=== PATIENT | female | born 1995 ===

== ENCOUNTER 2017-10-19 14:14 | Emergency (ER) | payer OTHER ==
[2017-10-19 14:33] VITALS: BMI 33.3
[2017-10-19 14:34] VITALS: BP 112/73; PULSE 88; RESP 16; TEMP 99.4; O2SAT 99
--- NOTE | 2017-10-19 14:44 | ED PDOC ---
HPI: CCC, URI, Sore Throat Time Seen by Provider: 10/19/17 15:00 Chief Complaint (Nursing): Cough, Cold, Congestion Chief Complaint (Provider): Cough and fever History Per: Patient History/Exam Limitations: no limitations Onset/Duration Of Symptoms: Other (2 weeks) Additional Complaint(s): Patient is a 22 y/o female with no significant past medical history presenting to the emergency department for a cough, tactile fever, and chest pain when coughing ongoing for two weeks. Reports that the fever occurs at night. Denies shortness of breath, vomiting, diarrhea, or other complaints. PCP: none provided. Past Medical History Reviewed: Historical Data, Nursing Documentation, Vital Signs Vital Signs: Last Vital Signs Temp 99.4 F 10/19/17 14:33 Pulse 88 10/19/17 14:33 Resp 16 10/19/17 14:33 BP 112/73 10/19/17 14:33 Pulse Ox 99 10/19/17 15:20 - Medical History PMH: No Chronic Diseases - Family History Family History: States: Unknown Family Hx - Home Medications Home Medications: Ambulatory Orders Medication Instructions Recorded Albuterol Sulfate [Proair Hfa] 0.09 mg IH Q6H PRN #2 inh 05/17/16 Azithromycin [Zithromax Z-Jayden] 250 mg PO DAILY 5 Days tab 05/17/16 Benzonatate [Tessalon Perles] 100 mg PO BID PRN 5 Days sgl 05/17/16 Prednisone 20 mg PO BID 5 Days tablet 05/17/16 Albuterol HFA [Ventolin HFA 90 2 puff IH [id number] #1 puff 10/19/17 mcg/actuation (8 g)] Azithromycin [Z-Jayden] 250 mg PO DAILY #6 tab 10/19/17 Guaifenesin 400 mg PO QID #20 tablet 10/19/17 - Allergies Allergies/Adverse Reactions: Allergies Allergy/AdvReac Type Severity Reaction Status Date / Time No Known Allergies Allergy Verified 05/17/16 13:18 Review of Systems ROS Statement: Except As Marked, All Systems Reviewed And Found Negative Constitutional: Positive for: Fever (tactile) Respiratory: Positive for: Cough. Negative for: Shortness of Breath Gastrointestinal: Negative for: Vomiting, Diarrhea Physical Exam - Reviewed Nursing Documentation Reviewed: Yes Vital Signs Reviewed: Yes - Physical Exam Appears: Positive for: Non-toxic, No Acute Distress Head Exam: Positive for: ATRAUMATIC, NORMAL INSPECTION, NORMOCEPHALIC Skin: Positive for: Normal Color, Warm, Dry. Negative for: Pallor, Rash, Cyanosis Eye Exam: Positive for: Normal appearance. Negative for: Nystagmus, Conjunctival injection, Scleral icterus ENT: Positive for: Normal ENT Inspection, Pharynx Is (normal), Other (moist mucuous membranes). Negative for: Pharyngeal Erythema, Tonsillar Exudate, Tonsillar Swelling Neck: Positive for: Normal (with no meningismus) Cardiovascular/Chest: Positive for: Regular Rate, Rhythm. Negative for: Murmur Respiratory: Positive for: Normal Breath Sounds. Negative for: Accessory Muscle Use, Respiratory Distress Gastrointestinal/Abdominal: Positive for: Normal Exam, Soft. Negative for: Tenderness Extremity: Positive for: Normal ROM. Negative for: Pedal Edema Lymphatic: Positive for: Adenopathy (nontender cervical lymphadenoapthy) Neurologic/Psych: Positive for: Alert, Oriented (x3) - ECG O2 Sat by Pulse Oximetry: 99 (RA) Pulse Ox Interpretation: Normal Medical Decision Making Medical Decision Making: Time: 15:12 Initial impression: Cough and fever Initial plan: Albuterol 3 mL IH Robitussin 400 mg PO Nebulizer treatment Peak flow assessment pre and post treatment Reevaluation 15:19 On reevaluation, patient is sitting in a chair in no acute distress. Patient is speaking in full sentence. Lungs are clear to auscultation. Patient is stable for discharge. Advised to follow up with primary care physician in 1-2 days without fail. Advised to take medication as prescribed. Return to the emergency room at any time for any new or worsening symptoms. Patient states she fully agrees with and understands discharge instructions. States that she agrees with the plan and disposition. Verbalized and repeated discharge instructions and plan. I have given the patient opportunity to ask any additional questions. Clinical impression: Bronchitis ~ Scribe Attestation: Documented by Kenyatta Byers, acting as a scribe for JANE Aguilera. Provider Scribe Attestation: All medical record entries made by the Scribe were at my direction and personally dictated by me. I have reviewed the chart and agree that the record accurately reflects my personal performance of the history, physical exam, medical decision making, and the department course for this patient. I have also personally directed Disposition - Clinical Impression Clinical Impression: Bronchitis - Patient ED Disposition Is Patient to be Admitted: No Counseled Patient/Family Regarding: Diagnosis, Need For Followup, Rx Given - Disposition Referrals: [facility] [Outside] Disposition Time: 15:19 Condition: STABLE Additional Instructions: Thank you for letting us take care of you today. You were treated for acute bronchitis. The emergency medical care you received today was directed at your acute symptoms. If you were prescribed any medication, please fill it and take as directed. It may take several days for your symptoms to resolve. Return to the Emergency Department if your symptoms worsen, do not improve, or if you have any other problems. Please contact one of the physicians/clinics you have been referred to that are listed on the Patient Visit Information form that is included in your discharge packet. Bring any paperwork you were given at discharge with you along with any medications you are taking to your follow up visit. Our treatment cannot replace ongoing medical care by a primary care provider (PCP) outside of the emergency department. Thank you for allowing the [facility] team to be part of your care today. Prescriptions: Albuterol HFA [Ventolin HFA 90 mcg/actuation (8 g)] 2 puff IH [id number] #1 puff Azithromycin [Z-Jayden] 250 mg PO DAILY #6 tab Guaifenesin 400 mg PO QID #20 tablet Instructions: Acute Bronchitis (ED) Forms: [facility] (Nepali), [facility] ED School/Work Excuse Print Language: IRAQI - PA / REGISTERED PHYSICAL THERAPIST / Resident Statement MD/DO has reviewed & agrees with the documentation as recorded.
[2017-10-19] MEDS ORDERED: Albuterol-Ipratrop 3 mg / 0.5 (3 ml) UD IH STA (15:12)
[2017-10-19] MEDS ORDERED: Albuterol-Ipratrop 3 mg / 0.5 (3 ml) UD ONE (15:27)
[2017-10-19] MEDS ORDERED: guaiFENesin 100 mg/5 ml Syrup UD ONE (15:30)
[2017-10-19] MEDS ORDERED: guaiFENesin 200 mg/10 ml Syrup UD PO ONE (15:30)
== END 2017-10-19 18:37 | disposition home or self-care (01) ==
LOC: H.ER 14:14
DX: J40 Bronchitis, not specified as acute or chronic (principal)

== ENCOUNTER 2018-07-08 12:56 | Inpatient (IN) | payer MEDICAID ==
[2018-07-08] MEDS ORDERED: Phenaphthazine-PH Test Paper VI ONE (13:23)
[2018-07-08 13:34] VITALS: BMI 34.7
[2018-07-08] MEDS ORDERED: Betamethasone Soluspan 30 mg/5mL Inj Susp IM ONE (14:29)
[2018-07-08] MEDS ORDERED: Penicillin G Potassium 5 MU in Sodium Chloride 0.9% 50 ML IVPB ONE (14:30)
[2018-07-08] MEDS ORDERED: Penicillin G 5 Million Unit Vial IVPB ONE ×2 (15:00→19:07)
[2018-07-08] MEDS ORDERED: Lactated Ringer's 1,000 ML IV ONE (15:23)
[2018-07-08] MEDS ORDERED: Oxytocin 30 UNIT 30 UNITS/500 ML BAG IV ONE ×3 (15:23→19:31)
--- NOTE | 2018-07-08 15:59 | OBHP ---
Datetime: 07/08/2018 13:55 IP Adm Impression: , intrauterine ; Ruptured Membranes IP Admit Plan: Admit to unit; Initiate labor protocol Admit Comment, IP Provider: Voice:[id number] Pt is a 23yo 36.4wk due 08/01/18 based on 11wk U/S done on 01/11/18 here due to suspected RO M she states that at 12:30pm she felt a gush of fluid and now has leaking. Denies vaginal bleeding, c ontractions, states good movement. Denies headaches, blurry vision, chest pain, SOB, nausea, vo miting, diarrhea, constipation, or dysuria. PNC: Dr. Lauri Trivedi PNL: unremarkable, GBS unknown-done on 07/05, ABO:A+, TDAP- 05/04/18, Gest DM screen 106 OBHx: -2013 No complications Disaster Recovery Consultant: Denies STD's, Denies abnormal pap smear, Last sexually active 1 week ago PMHx: None Meds: PNV Allergies: NKDA Family Hx: None Social Hx: Denies smoking, alcohol, or drug use Surg hx: None Hosp: None PE: HEENT: NCAT, PERRLA CV: RRR, +S1,S2, no murmurs, rubs or gallops RESP: CTA, no wheezing, rales or rhonchi Abdomen: Soft, nontender, normal bowel sounds appreciated Disaster Recovery Consultant: Grossly ruptured clear fluids, 3cm dilated, + Nitrazine test Extremities: No edema noted A/P Pt is a 23yo 36.4wk here for spontaneous rupture of membranes PROM -Admit to floor -Initiate labor protocol -Betamethasone 12mg IM -PCN G 5MU/50ML once, then 2.5MU/50ML Q4H- GBS status unknown -Pain control -Monitor heart rate -Hydrate- Lactated Ringers @125ML/HR Case reveiwed and discussed with Dr. Jose Juan Baxter PGY-1 Attending Note: Patient was seen and examined with Resident and I agree with the above findings. Pelvic Type - PN: Adequate Extremities - PN: Normal Abdomen - PN: Normal Back - PN: Normal Breast - PN: Not Done Lungs - PN: Normal Heart - PN: Normal Thyroid - PN: Not Done Neurologic - PN: Normal HEENT - PN: Normal General - PN: Normal Presentation-Admit: Vertex FHR - Baseline A Provider: 150s Amniotic Fluid Color, Provider: Bloody Membranes, Provider: Ruptured Gestation - Est Wks by US: 36.4 Pool Provider: Positive Nitrazine Provider: Positive IP Hx Assessment: The History has been Reviewed and is Current EGA AdmitDate IP: 36.4 Vital Signs Provider: Reviewed; Within Normal Limits IP Chief Complaint: Suspected ruptured membranes; Maternal discomfort NICHD Variability Prov Fetus A: Moderate 6-25bpm NICHD Accel Fetus A IP Provider: 15X15 FHR Category Provider Fetus A: Category I NICHD Decel Fetus A IP Provider: None Dilatation, Provider: 3 Effacement, Provider: 70 Station, Provider: -3 Genitourinary Exam: Normal DTRs - PN: Normal
[2018-07-08 16:02] LABS: BASO % 0.3 % (0.0-2.0); EOS # 0.1 K/uL (0.0-0.7); EOS % 0.9 % (0.0-4.0); HEMOGLOBIN 12.3 g/dL (12.0-16.0); LYMPH # 2.2 K/uL (1.0-4.3); LYMPH % 16.8 % (20.0-40.0); MEAN CELL VOLUME 78.3 fl (81.0-99.0); MEAN CORPUSCULAR HEMOGLOBIN 26.1 pg (27.0-31.0); MEAN CORPUSCULAR HGB CONC 33.3 g/dL (33.0-37.0); MEAN PLATELET VOLUME 8.6 fl (7.2-11.7); MONO # 0.8 K/uL (0.0-0.8); MONO % 5.8 % (0.0-10.0); NEUT % 76.2 % (50.0-75.0); NRBC % 0.1 % (0.0-0.0); RBC 4.73 Mil/uL (3.80-5.20); RED CELL DISTRIBUTION WIDTH 14.9 % (11.5-14.5); WHITE BLOOD COUNT 13.1 K/uL (4.8-10.8)
[2018-07-08] MEDS: Lactated Ringer's 1,000 ML IV SCH ×2 (16:17→21:21)
[2018-07-08 18:52] VITALS: O2SAT 100
--- NOTE | 2018-07-08 19:46 | OBPN ---
Datetime: 07/08/2018 19:39 IP Progress Impression: Normal progression of labor; Reassuring heart rate; Premature rupture of membranes IP Procedures: Sterile Vag Exam IP Progress Plan: Continue present management; Anticipate Vaginal Delivery Contraction Comments Provider: Q 2-3 FHR - Baseline A Provider: 150 Gestation - Est Wks by US: 36.4 Presentation-Admit: Vertex IP Progress Note Comment: IUP at 36.4wks PROM in active labor S/P Bethamethasone X1 Requestin Epidural for anesthesia Plan: Continue current management May have epidural. NICHD Accel Fetus A IP Provider: 15X15 FHR Category Provider Fetus A: Category I NICHD Variability Prov Fetus A: Moderate 6-25bpm Dilatation, Provider: 6 Effacement, Provider: 90 Station, Provider: -3 NICHD Decel Fetus A IP Provider: Early Datetime: 07/08/2018 13:55 Pool Provider: Positive Nitrazine Provider: Positive Membranes, Provider: Ruptured Amniotic Fluid Color, Provider: Bloody Vital Signs Provider: Reviewed; Within Normal Limits
[2018-07-08] MEDS ORDERED: Fentanyl/Bupivacaine HCl 250 ML EPI ONE (20:28)
--- NOTE | 2018-07-08 21:55 | OBPN ---
Datetime: 07/08/2018 21:50 IP Informed Consent Obtain: Vaginal Delivery IP Progress Plan: Continue present management Contraction Comments Provider: q 2-4 mins FHR - Baseline A Provider: 150 IP Progress Note Comment: Patient evaluated, feeling comfortable s/p epidural. patient check by RN, unchanged cervical exam in 2 hours [id number] mod segundo, +accels, early decels TOCo = ctxns q 2-4 mins A/P 1. Patient has dystotic active labor, will start augmentation now with Pitocin 2. CEFM and TOCO 3. Continue antibiotics for GBS prophylaxis, pt has been given Betamethasone 4. re-evaluate as needed 5. Discussed current status with patient, all questions answered Vital Signs Provider: Reviewed; Within Normal Limits NICHD Accel Fetus A IP Provider: 15X15 FHR Category Provider Fetus A: Category I NICHD Variability Prov Fetus A: Moderate 6-25bpm Dilatation, Provider: 6 Effacement, Provider: 90 Station, Provider: -3 NICHD Decel Fetus A IP Provider: Early
[2018-07-08] MEDS ORDERED: Lidocaine 2% MPF (5 ml) Inj ONE (22:51)
[2018-07-09] MEDS ORDERED: Acetaminophen-Codeine 300/30 mg Tab PO PRN ×2 (00:25→03:13)
[2018-07-09] MEDS ORDERED: Oxycodone/Acetaminophen 5/325 mg Tab PO PRN ×2 (00:25→03:13)
[2018-07-09] MEDS ORDERED: Benzocaine/Menthol SPRAY TOP PRN ×2 (00:25→03:13)
--- NOTE | 2018-07-09 00:26 | OBDS ---
DELIVERY PERSONNEL Delivery Doctor: Shayla Desai MD Seamless Tube Roller: Ma. Pily Deutsch RN Anesthesiologist: Olena Leach MD MATERNAL INFORMATION Delivery Anesthesia: Epidural Medications in Delivery: [id number] Estimated Blood Loss (ml): 50 Placenta Cultured: Yes Maternal Complications: None Provider Comments: of live male infant over intact perineum OA, nuchal cord loose x 1, compound presentation, followed by shoulders and rest of atraumatically, mouth and nose suctioned, cor d clamped and cut, handed off to waiting artists' model, Cord blood x 2 obtained, placenta deliv ered spontaneously, uterus firm, first degree laceration repaired with 3-0 vicryl rapide, 50 EBL, pt tolerated procedure well LABOR SUMMARY EDC: 08/01/2018 00:00 No. Babies in Womb: 1 Attempted: No Labor Anesthesia: Epidural LABOR INFORMATION Reason for Induction: Not Applicable Onset of Labor: 07/08/2018 19:37 Complete Dilatation: 07/08/2018 23:13 Oxytocin: Augmentation Group B Beta Strep: Done, Result Unknown Antibiotics # of Doses: 2 Steroids Given: None Reason Steroids Not Administered: Not Applicable MEMBRANES Membranes Rupture Method: Spontaneous Rupture of Membranes: 07/08/2018 12:00 Length of Rupture (hrs): 11.53 Amniotic Fluid Color: Clear Amniotic Fluid Amount: Scant Amniotic Fluid Odor: None STAGES OF LABOR Stage 1 hrs: 3 Stage 1 min: 36 Stage 2 hrs: 0 Stage 2 min: 19 Stage 3 hrs: 0 Stage 3 min: 2 Total Time in Labor hrs: 3 Total Time in Labor min: 57 VAGINAL DELIVERY Episiotomy: None Laceration Extension: First Degree Laceration Type: Vaginal Laceration Repair: Yes Initial Vag Sponge Count: 5 Final Vag Sponge Count: 5 Initial Vag Sharps Count: 1 Final Vag Sharps Count: 1 Sponge Count Correct: Yes Sharps Count Correct: Yes BABY A INFORMATION Infant Delivery Date/Time: 07/08/2018 23:32 Method of Delivery: Vaginal Born in Route : No : N/A Forceps: N/A Vacuum Extraction: N/A Shoulder Dystocia : No SHOULDER DYSTOCIA BABY A Delivery Date/Time: 07/08/2018 23:32 PRESENTATION/POSITION BABY A Presentation: Compound PLACENTA INFORMATION BABY A Placenta Delivery Time : 07/08/2018 23:34 Placenta Method of Delivery: Spontaneous Placenta Status: Delivered SCORES BABY A Heart Rate 1 min: >100 bpm Resp Effort 1 min: Good Cry Reflex Irritability 1 min: Cough or Sneeze or Pulls Away Muscle Tone 1 min: Active Motion Color 1 min: Body [place], Extremities Blue Resuscitation Effort 1 min: Tactile Stimulation SCORE 1 MIN: 9 Heart Rate 5 min: >100 bpm Resp Effort 5 min: Good Cry Reflex Irritability 5 min: Cough or Sneeze or Pulls Away Muscle Tone 5 min: Active Motion Color 5 min: Body [place], Extremities Blue Resuscitation Effort 5 min: N/A SCORE 5 MIN: 9 INFORMATION BABY A Gestational Age at Delivery: 36.4 Gestational Status: Infant Outcome : Liveborn Condition : Stable Infant Sex: Male IDENTIFICATION/MEDS BABY A ID Band Number: [id number] ID Band Location: Left Leg; Left Arm WEIGHT/LENGTH BABY A Infant Birthweight (gms): 3240 Weight (lb): 7 Weight (oz): 2 CORD INFORMATION BABY A No. Cord Vessels: 3 Nuchal Cord : Around Neck x1, Loose Cord Blood Taken: Yes Suction: Mouth; Nose
--- NOTE | 2018-07-09 07:34 | OBPPN ---
Datetime: 07/09/2018 06:51 PP Pain Prov: Within normal limits PP Nausea Prov: Denies PP Flatus Prov: Yes PP BM Prov: No PP Breasts Prov: Not Done PP Heart Prov: Normal PP Lungs Prov: Normal PP Abdomen/Uterus Prov: Normal PP Lochia Prov: Normal PP Vulva/Perineum Prov: Not Done PP CVA Tenderness Prov: Not Done PP Extremities Prov: Normal PP C/S Incision Prov: Not Applicable PP Progress Prov: Normal PP Impression Prov: Normal progression PP Plan Prov: Continue present management PP Progress Note Prov: S: 23 yo s/p NVDon 07/08/2018 at 11:32 pm. Pt. is seen and examined a t bedside this AM. No significant overnight events. Pt reports occasional abdominal pain, but well co ntrolled with pain meds. Pt sitting up comfortably without any difficulty. Breast feeding baby. Josey ating diet. Lochia is similar to light menses in volume. Patient voiding without difficulties, no bow el movement but passing gas. Denies fever, chills, diarrhea, nausea, vomiting, chest pain, dyspnea, a nd dizziness. O: VS: stable GEN: NAD Cardio: S1S2, no M/G/R Resp: clear breath sounds b/l Abdomen: BS+, NT, Uterus is firm and at the level of the umbilicus. EXT: No edema, calves non-tender NEURO/PSYCHI: normal affect and mood Assessment/Plan: 23 yo s/p NVDon 07/08/2018 at 11:32 pm. Pt remains afebrile, tolerating p ain with medication, tolerating PO, doing well on PPD 1. OOB with caution -Patient sitting up without difficulty -Ibuprofen 600mg for pain. -Colace 100mg PO BID/Senokot 17.2 mg qHS for constipation -Encourage -F/u CBC post-delivery: pending -Anticipated d/c to home, 07/10/2018. Case discussed with Dr. Echevarria --- Ayala Ng, PGY1 OB Hospitalist Addendum: Pt seen and examined by me. Agree w/ above. PPD1 s/p vaginal delivery, doing well, breast feeding. Continue current management. (ES) Vital Signs Provider PP: Reviewed; Within Normal Limits
[2018-07-09] MEDS: Multivitamin With Minerals Tab PO SCH (08:43)
[2018-07-09] MEDS ORDERED: Multivitamin With Minerals Tab PO SCH (09:00)
[2018-07-09 10:19] LABS: BASO # 0.1 K/uL (0.0-0.2); BASO % 0.6 % (0.0-2.0); HEMOGLOBIN 10.4 g/dL (12.0-16.0); LYMPH # 1.9 K/uL (1.0-4.3); LYMPH % 7.6 % (20.0-40.0); MEAN CELL VOLUME 77.3 fl (81.0-99.0); MEAN CORPUSCULAR HEMOGLOBIN 25.6 pg (27.0-31.0); MEAN CORPUSCULAR HGB CONC 33.1 g/dL (33.0-37.0); MEAN PLATELET VOLUME 8.3 fl (7.2-11.7); MONO # 1.2 K/uL (0.0-0.8); MONO % 4.7 % (0.0-10.0); NEUT # 21.6 K/uL (1.8-7.0); NEUT % 87.1 % (50.0-75.0); PLATELET COUNT 253 K/uL (130-400); RBC 4.08 Mil/uL (3.80-5.20); RED CELL DISTRIBUTION WIDTH 14.6 % (11.5-14.5); WHITE BLOOD COUNT 24.7 K/uL (4.8-10.8)
[2018-07-09 12:35] LABS: ANISOCYTOSIS SLIGHT; HYPOCHROMIC SLIGHT; LYMPHOCYTE 10 % (20-50); MONOCYTE 5 % (0-10); NEUTROPHIL 85 % (42-75); PLATELET ESTIMATE NORMAL (NORMAL); TOTAL CELLS COUNTED 100
[2018-07-10] MEDS ORDERED: Influenza Vaccine (5 YR UP)/PF 60 MCG/0.5 ML SYR IM ONE (06:11)
[2018-07-10] MEDS: Multivitamin With Minerals Tab PO SCH (08:40)
--- NOTE | 2018-07-10 08:40 | OBPPN ---
Datetime: 07/10/2018 05:51 PP Pain Prov: Within normal limits PP Nausea Prov: Denies PP Flatus Prov: Yes PP BM Prov: No PP Breasts Prov: Not Done PP Heart Prov: Normal PP Lungs Prov: Normal PP Abdomen/Uterus Prov: Normal PP Lochia Prov: Normal PP Vulva/Perineum Prov: Normal PP CVA Tenderness Prov: Normal PP Extremities Prov: Normal PP C/S Incision Prov: Not Applicable PP Progress Prov: Normal PP Impression Prov: Normal progression PP Plan Prov: Discharge PP Progress Note Prov: S: Patient seen this morning at bedside, she is now s/p on 07/08, on her PPD 2. Pt has no complaints today. Reports minimal abdominal pain and did not ask for misty n medication last night, she is tolerating liquid diet w/o N/V, ambulating to bathroom without any di fficulties, lochia is less than menses in volume, Breast feeding w/o difficulty and using formula as complementary. Patient reports flatus but no BM as of yet. O: VS WNL PE: GEN: NAD HEENT: EOMI, Mucous membrane moist. RESP: CTA b/l CV: RRR, no murmurs heard ABD: soft, non-tender, uterus firm below umbilicus LE: No edema, Bashir's negative. A/P 23 y/o now s/p on 07/08/18, going into her PPD2 today with normal post- progres kit. Patient is stable to be D/C home. -Encourage ambulation -Encourage -PNV 1 tab PO daily -Ibuprofen 600mg 1 tab Q6h prn for mild-mod pain -D/C home today Kailee Powell MD PGY1 OB Hospitalist on-call. On ronuds, I saw this patient...agree with PGY1 note MAHNDO IP PP Procedures: None Vital Signs Provider PP: Reviewed; Within Normal Limits
--- NOTE | 2018-07-10 08:40 | OBDCSUM ---
Datetime: 07/10/2018 05:52 Discharged to, Provider: Home Follow up at, Provider: Isaiah trivedi [facility] Disch Instr Activity: Normal activity; May Shower Disch Instr Diet: Regular Discharge Instructions, Provider: Routine instructions given Discharge Diagnosis, Provider: Labor; Delivery Discharge Time: 07/10/2018 10:00 Follow up in weeks, Provider: 4-6 weeks Contraception discussed, Prov: Yes Disch Activity Restrictions: No exercising; No lifting; No sexual activity; Nothing in vagina - Inte rcourse, tampons, douche Discharge Comment, Provider: EGA: 36.4 wk Diagnosis: 23 y/o , s/p on 07/08/18 @ 11:32 pm. She delivered a baby boy, Wt 3240, APG AR 8/ Summary: Patient is PPD2 with normal progression. No complications during post- period. Loch ia less than menses. Pt was able to pass gas and had BM, She is tolerating regular diet, Fundus firm below umbilicus, able to ambulate w/o any difficulties, voiding well, denies fever, chills, MANUEL, SOB, N/V, calf pain. CBC post-: 11.5/34.8 Discharge Instructions: Continue and increase PNV 1 tab PO daily Ibuprofen 600mg 1 tab PO Q6h prn for mild-mod pain Pt is planning to use Nexplanon Instructions given to patient: If excessive bleeding, return of pain or increasing pain and/or fev er without relief from medication, go to ED PT was urged if feeling sad, mood swing, depression, neglect of baby, suicidal thoughts, homicidal thought should go to ED or call 911 for help Pt should go to her Primary care doctor if she has difficulty with F/U post- visit with Isaiah Trivedi in 4 to 6 weeks Kailee Powell MD PGY1 OB Hospitalist on-call. On ronuds, I saw this patient...agree with PGY1 note MAHNDO Discharge Diagnosis Prov Other: Contraception: Nexplanon
[2018-07-10 22:52] VITALS: BP 106/78; PULSE 76; RESP 19; TEMP 98.1
== END 2018-07-10 14:00 | disposition home or self-care (01) | DRG 886 ==
LOC: H.EROB2 12:56 → H.L&D 13:55 → H.EROB2 15:37 → H.OB/GYN 07-09 01:20
PROVIDERS: ADMIT Obstetrics & Gynecology; ATTEND Obstetrics & Gynecology
PROC: 10E0XZZ Delivery of Products of Conception, External Approach (ICD-10-PCS; principal; 2018-07-08)
PROC: 4A1HXCZ Monitoring of Products of Conception, Cardiac Rate, External Approach (ICD-10-PCS; 2018-07-08)
PROC: 0HQ9XZZ Repair Perineum Skin, External Approach (ICD-10-PCS; 2018-07-08)
DX: O60.10X0 Preterm labor with preterm delivery, unspecified trimester, not applicable or unspecified (principal); Z3A.36 36 weeks gestation of pregnancy; Z37.0 Single live birth; O69.81X0 Labor and delivery complicated by cord around neck, without compression, not applicable or unspecified; O32.6XX0 Maternal care for compound presentation, not applicable or unspecified; O70.0 First degree perineal laceration during delivery